=== PATIENT | male | born 1980 | race Caucasian/White ===

== ENCOUNTER 2018-06-25 05:16 | Inpatient (IN) | payer OTHER ==
[2018-06-21 17:55] VITALS: BMI 38.5
--- NOTE | 2018-06-22 08:15 | PREOPHP ---
DATE OF ADMISSION: 06/25/2018 REASON FOR CONSULTATION: Consultation was requested by Dr. Omar Berger for medical evaluation and clearance of a 38-year-old gentleman about to undergo surgery. Thank you, Dr. Berger for allowing us to participate in care of this patient. HISTORY OF PRESENT ILLNESS: The patient is a 38-year-old gentleman, issues with his back currently b eing admitted for correction of the above. In terms of his past medical and surgical history, he has not had any medical hospitalizations, has had several surgeries including an appendectomy and an ope n reduction and internal fixation for a fractured arm. Other than that, he has been quite healthy. MEDICATIONS: Currently he is taking the following medications: 1. Protonix 20 mg b.i.d. 2. Tramadol 50 mg two 4 times a day. 3. Zyrtec 10 mg as needed. 4. Gabapentin 400 mg t.i.d. 5. Ketoprofen 75 mg b.i.d. 6. Cyclobenzaprine 7.5 mg 3 times a day. 7. Adderall-XL 20 mg b.i.d. ALLERGIES: HE IS NOT ALLERGIC TO ANY MEDICATIONS. SOCIAL HISTORY: The patient is , has a daughter. He does not smoke or drink alcohol or coffee. He has no difficulty sleeping at night and currently is on disability. FAMILY HISTORY: Father is alive at 54, doing well. Mother in her 50s of breast cancer. Two br others in good health. Family history of diabetes, cancer and hypertension. REVIEW OF SYSTEMS: HEENT: He denies any significant headaches. CARDIORESPIRATORY: He denies any chest pain or shortness of breath. GASTROINTESTINAL: No melena or hematemesis. GENITOURINARY: No urgency or frequency. MUSCULOSKELETAL: Positive for back pain. NEUROPSYCHIATRIC: Unremarkable. GENERAL HEALTH: As above. PHYSICAL EXAMINATION: VITAL SIGNS: The patient's blood pressure was 124/82, pulse was 80 and regular, respirations were 18 , temperature 98.7, height 6 feet, weight 299.9 pounds. GENERAL: The patient was noted to be a well-developed, well-nourished male, alert and cooperative, i n no apparent acute distress, oriented to time, place, and person. HEAD, EAR, EYES, NOSE AND THROAT: Head was atraumatic. Eyes: Pupils were equal, reacted to light a nd accommodation. Fundi were benign. Tympanic membranes were unremarkable. Nose was negative. Evon th was unremarkable. Fair oral hygiene was present. NECK: Supple without any rigidity. Trachea was midline. Thyroid was within normal limits. Neck ve ins were flat and carotid pulses were equal. BACK: Unremarkable. CHEST: Symmetrical. BREASTS AND AXILLARY: Did not reveal any masses. LUNGS: Clear to percussion and auscultation. HEART: PMI is fifth intercostal space at the midclavicular line. Regular sinus rhythm was noted. N o significant murmurs, rubs, or gallops being elicited. ABDOMEN: Soft, good bowel sounds were noted. No significant organomegaly, masses, or tenderness. GENITALIA: Normal male external genitalia. RECTAL AND PROSTATIC: Per PCP. EXTREMITIES: Did not reveal any clubbing, edema or cyanosis. Scar from prior surgery was noted and peripheral pulses were physiologic. SKIN: Moist and warm without any eruptions. No gross lymphadenopathy was noted. NEUROLOGIC: Grossly intact. IMPRESSION: 1. Lumbar disk disease. 2. Chronic pain syndrome. 3. ADHD. 4. Stable health. LABORATORY DATA: Review of laboratory and other data revealed the following: The patient's chemistr y panel revealed normal electrolytes, random glucose 106, normal BUN and creatinine, calcium and uric acid, proteins, liver function tests basically normal other than minimal elevation of ALT at 45, mag nesium, CBC, UA, PT and PTT were normal as well as was his EKG. His chest x-ray did not reveal any a cute infiltrates, nor with any acute cardiopulmonary changes noted. DISCUSSION: Dr. Berger, I see no contraindication in this patient undergoing current proposed surg [place] under desired form of anesthesia. I feel he is a suitable candidate at this particular point in time. I will be more than happy to follow him with you during his stay at [facility]. Thank you again, Dr. Berger, for allowing us to participate in care of this patient. Sincerely, Dictated By: CEE VALDEZ MD SS/NTS Conf#: [id number] DID#: [id number] CC: OMAR BERGER MD;*EndCC*
[2018-06-25] VITALS (26 sets, daily range): BP systolic 114–167; BP diastolic 60–102; PULSE 74–96; RESP 9–26; Ht 188 cm; Wt 135.9 kg
[~2018-06-25] VITALS: Ht 188 cm; Wt 135.9 kg
[~2018-06-25 05:16] MED LIST: CYCL5TAB PO; GABA400C14 PO; KETO200C PO; TRAM50TA PO
[2018-06-25] MEDS ORDERED: CEFAZOLIN 2 GM/50 ML (PMX) 50 ML IVPB ONE (06:00)
--- NOTE | 2018-06-25 06:39 | PREAC ---
Date/Time of Note Date/Time of Note DATE: 06/25/18 TIME: 06:38 Anesthesia Eval and Record Evaluation Time Pre-Procedure Interview DATE: 06/25/18 TIME: 06:38 Age 38 Sex male NPO: 8 hrs Preoperative diagnosis herniated disk Planned procedure lumbar microdiscectomy Past Medical History Past Medical History: Includes Musculoskeletal: Other (back pain ) GI: GERD, Morbid obesity Surgery & Anesthesia Issues No known issue Meds Anticoagulation: No Beta Fortino within 24 hr: No Reason Beta Fortino not given: Pt. not on B-Fortino Reported Medications Gabapentin* (Gabapentin*) 400 Mg Capsule, 400 MG PO BID, #90 CAP 06/21/18 Cyclobenzaprine Hcl* (Cyclobenzaprine Hcl*) 5 Mg Tablet, 7.5 MG PO BID, #90 TAB 06/21/18 Tramadol Hcl* (Ultram*) 50 Mg Tablet, 100 MG PO Q6H PRN for PAIN, TAB 06/21/18 Ketoprofen (Oruvail) 200 Mg Cap24h.pel, 200 MG PO DAILY, CAP 06/21/18 Current Medications Lactated Ringer's 1,000 ml @ 25 mls/hr Q24H IV* ; Start 06/25/18 at 06:00; Stop 06/26/18 at 21:59 Meds reviewed: Yes Allergies Coded Allergies: No Known Allergy (Unverified , 06/21/18) Allergies Reviewed: Yes Labs/Studies Labs Reviewed: Reviewed by anesthesiologist test: N/A Pre-procedure Exam Airway: Adequate mouth opening, Adequate thyromental dist Mallampati: Mallampati III Teeth: Normal Lung: Normal Heart: Normal ASA Physical Status ASA physical status: 2 Emergency: None Pre-operative Attestations Prior to commencing anesthesia and surgery, the patient was re-evaluated, there was verification of: *The patient's identity *The results of appropriate recent lab work and preoperative vital signs *The above evaluation not changing prior to induction *Anesthetic plan, risk benefits, alternative and complications discussed with patient/family; questions answered; patient/family understands, accepts and wishes to proceed. STEPHANIE KU DO Jun 25, 2018 06:39
[2018-06-25] MEDS ORDERED: PROPOFOL 20 ML ONE (06:48)
[2018-06-25] MEDS ORDERED: SUCCINYLCHOLINE CHLORIDE 100 MG/5 ML SYG IV ONE (06:48)
[2018-06-25] MEDS ORDERED: MIDAZOLAM 1 MG/ML 2 ML INJ ONE (06:48)
[2018-06-25] MEDS ORDERED: ROCURONIUM 50 MG INJ ONE (06:48)
[2018-06-25] MEDS ORDERED: LIDOCAINE 1% (MDV) 20 ML INJ ONE (06:49)
--- NOTE | 2018-06-25 06:54 | HPN ---
Date/Time of Note Date/Time of Note DATE: 06/25/18 TIME: 06:53 Interval H&P Admission Note Pt. seen H&P reviewed: No system changes BRIANA BERGER MD Jun 25, 2018 06:54
[2018-06-25] MEDS ORDERED: CEFAZOLIN 1 GM INJ ONE (07:00)
[2018-06-25] MEDS ORDERED: DESFLURANE 15 MIN ONE (07:00)
[2018-06-25] MEDS ORDERED: CETI10TA19 PO (07:07)
[2018-06-25] MEDS ORDERED: AMPH20TA2 PO (07:07)
[2018-06-25] MEDS ORDERED: PANT20TA3 PO (07:07)
[2018-06-25] MEDS ORDERED: ONDANSETRON 4 MG INJ ONE (07:20)
[2018-06-25] MEDS ORDERED: DEXAMETHASONE 4 MG/ML 5 ML INJ ONE (07:20)
[2018-06-25] MEDS ORDERED: POLYMYXIN/BACITRACIN 1L IRRIG ONE (07:26)
[2018-06-25] MEDS ORDERED: BUPIVACAINE 0.25% (MPF) 30 ML INJ ONE (07:26)
[2018-06-25] MEDS ORDERED: GELATIN SIZE 100 SPONGE ONE (07:26)
[2018-06-25] MEDS ORDERED: THROMBIN 5000 UNIT VIAL ONE (07:26)
[2018-06-25] MEDS ORDERED: GLYCOPYRROLATE 0.4 MG INJ ONE (08:34)
[2018-06-25] MEDS ORDERED: NEOSTIGMINE 3 MG/3 ML SYRINGE ONE (08:34)
[2018-06-25] MEDS: DEXTROSE 5%-0.45% NACL 1,000 ML IV SCH ×3 (08:39→23:02)
[2018-06-25] MEDS ORDERED: SUGAMMADEX SODIUM 200 MG/2 ML VIAL IV ONE (08:42)
--- NOTE | 2018-06-25 08:45 | SIPON ---
Date/Time of Note Date/Time of Note DATE: 06/25/18 TIME: 08:42 Operative Report Preoperative Diagnosis HNP L5-S1 left Postoperative Diagnosis Same Operation/Procedure Performed Left hemilaminotomy L5 Microdiscectomy L5-S1 on the left Medial facetectomy and foraminotomy L5-S1 on the left Cosmetic wound closure (4 cm) Lateral localizing lumbar radiographs (2) Intraoperative nerve monitoring (2 hours) Surgeon see signature line assistant shift supervisor Cassia Chen PAPER SORTER Anesthesia: general Estimated blood loss: 10 - 50 ml's Transfusion Required none Specimen Disc L5-S1 the left Grafts/Implants none Complications none BRIANA BERGER MD Jun 25, 2018 08:45
--- NOTE | 2018-06-25 08:46 | NUR ---
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 spoke to the , will continue to monitor.
--- NOTE | 2018-06-25 08:59 | PAC ---
Date/Time of Note Date/Time of Note DATE: 06/25/18 TIME: 08:58 Post-Anesthesia Notes Post-Anesthesia Note Last documented vital signs Vital Signs Date Temp Pulse Resp B/P (MAP) Pulse Ox O2 O2 Flow FiO2 Time Delivery Rate 06/25/18 98.7 79 20 130/75 98 08:58 06/25/18 75 20 133/89 97 05:31 (104) Activity: WNL Respiratory function: WNL Cardiovascular function: WNL Mental status: Baseline Pain reasonably controlled: Yes Hydration appropriate: Yes Nausea/Vomiting absent: Yes STEPHANIE KU DO Jun 25, 2018 08:59
[2018-06-25] MEDS ORDERED: ZOLPIDEM 5 MG TAB PO PRN (09:00)
[2018-06-25] MEDS ORDERED: BETHANECHOL 25 MG TAB PO PRN (09:00)
[2018-06-25] MEDS ORDERED: LABETALOL HCL 20MG INJ IV PRN (09:00)
[2018-06-25] MEDS ORDERED: NACL 0.9% 3 ML SYG IV SCH (09:00)
[2018-06-25] MEDS ORDERED: PROCHLORPERAZINE 10 MG TAB PO PRN (09:00)
[2018-06-25] MEDS ORDERED: TRIMETHOBENZAMIDE 100 MG/ML VIAL IM PRN (09:00)
[2018-06-25] MEDS ORDERED: ONDANSETRON 4 MG INJ IV PRN ×2 (09:00)
[2018-06-25] MEDS ORDERED: DIAZEPAM 5 MG TAB PO PRN (09:00)
[2018-06-25] MEDS ORDERED: DIPHENHYDRAMINE 50 MG CAP PO PRN (09:00)
[2018-06-25] MEDS ORDERED: NALOXONE (0.4 MG/ML) INJ IV PRN (09:00)
[2018-06-25] MEDS ORDERED: AL HYDROX/MG HYDROX/SIMETH 30 ML CUP PO PRN (09:00)
[2018-06-25] MEDS ORDERED: HYDROCODONE/APAP (5/325) TAB PO PRN ×2 (09:00)
[2018-06-25] MEDS ORDERED: DIAZEPAM 5 MG/ML SYG IM PRN (09:00)
[2018-06-25] MEDS ORDERED: PROCHLORPERAZINE 10 MG INJ IV PRN (09:00)
[2018-06-25] MEDS ORDERED: HYDROmorphONE 1 MG/5 ML IV SYRINGE IV ONE (09:12)
[2018-06-25] MEDS: HYDROmorphONE 1 MG/5 ML IV SYRINGE IV PRN ×6 (09:13→09:50)
[2018-06-25] MEDS: LACTATED RINGER'S 1,000 ML IV* SCH (09:14)
[2018-06-25] MEDS: HYDROmorphONE 0.2 MG/ML PCA IV SCH ×2 (09:25→19:53)
--- NOTE | 2018-06-25 09:35 | OPR ---
DATE OF OPERATION: 06/25/2018 PREOPERATIVE DIAGNOSIS: Herniated disk, L5-S1 on the left. POSTOPERATIVE DIAGNOSIS: Herniated disk, L5-S1 on the left. OPERATIONS PERFORMED: 1. Left hemilaminotomy, L5. 2. Microdiskectomy, L5-S1 on the left. 3. Medial facetectomy and foraminotomy, L5-S1 on the left. 4. Cosmetic wound closure (4 cm). 5. Lateral localized lumbar radiographs (2). 6. Intraoperative nerve monitoring (2 hours). TIRE MOUNTER: MINA Butcher ANESTHESIA: General endotracheal. ANESTHESIOLOGIST: Dr. Lara. ESTIMATED BLOOD LOSS: 15 mL, none replaced. DRAINS: Two medium Hemovac drains employed. COMPLICATIONS: None. PERTINENT HISTORY AND PHYSICAL: This is a 38-year-old male who sustained injury to his back in the [employer] of employment on 02/02/2012. He has had extensive care since that time, remained symptomatic w ith back and left leg pain, which has been unrelieved by conservative management. He has undergone a number of diagnostic studies including an MRI of the lumbar spine, which demonstrated herniation of the L5-S1 disk on the left. Treatment options were discussed with the patient, who elected to procee d with surgery. OPERATIVE FINDINGS AT SURGERY: A small left paracentral herniation of the L5-S1 disk was confirmed. Baseline intraoperative nerve monitoring revealed decrease in the L5 potentials bilaterally of 20%, the left S1 potential was down 50%, the right S1 potential was down 30%. These all returned to ambreen l at the completion of the surgery. OPERATIVE PROCEDURE: With the patient in supine position after satisfactory induction of general end otracheal anesthesia by Dr. Lara, the patient was turned to the prone kneeling position over the [place] frame. All pressure points were carefully padded. Back was prepped and draped in usual layla rile fashion. Athrombic pumps were applied to the legs below the knees to prevent venous stasis duri ng and after procedure. Two spinal needles placed next to what was felt to be the L4 and L5 spinous processes, lateral angiogram was taken which confirmed anatomic localization. A 4 cm incision then c arried out midline over the spinous process of L5 through skin and subcutaneous tissue to deep fascia after skin was infiltrated with 0.25% Marcaine without epinephrine for postoperative analgesia. Sup erficial retractors were placed and hemostasis secured with electrocautery. Throughout the procedure , copious amounts of antibacterial irrigating solution used to periodically irrigate the wound. The fascia was incised in midline with a hot knife and a unilateral subperiosteal dissection carried out at L5-S1 on the left. Deep retractors were placed and deep hemostasis secured with electrocautery. A second intraoperative radiograph was taken with deep retractor at what was felt to be the L5-S1 int erspaces confirmed with second x-ray. A left hemilaminotomy L5 was then carried out using Leksell ro ngeur, Kerrison punches and curettes. Ligamentum flavum was incised with sharp dissection. The oper ating microscope was then moved into place. A medial facetectomy and foraminotomy was accomplished u sing small hand osteotome, mallet, Kerrison punches and curettes. The S1 root was then mobilized med ially and protected with D'Errico nerve retractor using microdissection technique. This revealed a h erniation of the L5-S1 disk on the left. A 15 blade knife used to cut a window in the annulus and po sterior longitudinal ligament and multiple degenerative disk fragments were harvested with pituitary rongeurs and sent to laboratory for pathologic study. Additional fragments were harvested using Epst ein curettes. A thorough search of the floor canal was made with an arthroscopic probe. No addition al fragments were encountered. The epidural hemostasis was secured with bipolar electrocautery on a low setting. Anesthesiologist then asked to perform a Valsalva maneuver at 40 mmHg and no spinal flu id was noted. The wound was then closed in layers over 2 medium Hemovac drains, one below the fascia , one above the fascia using #1 Vicryl [id number] approximating sutures in deep paralumbar muscu lature and deep fascia of back, 2-0 Vicryl subcutaneous approximating on the subcutaneous tissue, and a 4-0 Vicryl subcuticular cosmetic closing suture on the skin. Dermabond and sterile compressive dr essings were applied. The patient tolerated procedure well, was then turned to the supine position o nto his bed and extubated by Dr. Lara. He was transported to the recovery room in satisfactory c ondition. At the conclusion of procedure, sponge, instrument, and needle counts were all correct. NEED FOR WILDLIFE TECHNICIAN: During this spinal surgical procedure, my food service assistant was used to retract and protect the spinal nerves and dural sac. My food service assistant also employed the suction catheters to ev acuate blood from the surgical field to improve visualization of the neural structures. The assistan t was medically necessary to facilitate the completion of the surgery in a safe and expeditious [facility] r. [facility] regulations, as well as hospital bylaws, preclude the use of non-licensed [facility] care personnel such as operating room technicians, to perform these functions. Throughout the procedure, neural monitoring was carried out by [employer] including EMG, SSEP a nd MEP monitoring of the L3, L4, L5 and S1 nerve roots bilaterally along with spinal cord potentials. These were interpreted in real time Dr. Aaron Yates. Dictated By: BRIANA BERGER MD TM/NTS Conf#: [id number] DID#: [id number] CC: BRIANA BERGER MD; Dr. VALDEZ;*[facility]*
--- NOTE | 2018-06-25 10:05 | NUR ---
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 voided 700 ml out via urinal, notified & given update, report given to NNEKA Shea.
--- NOTE | 2018-06-25 10:07 | CONS ---
Consult Date/Type/Reason Admit Date/Time Jun 25, 2018 at 05:16 Initial Consult Date 06/21/2018 Type of Consultation: internal medicine Reason for Consultation pre-op evaluation and clearance Requesting Provider: BRIANA BERGER MD Date/Time of Note DATE: 06/25/18 TIME: 10:02 Subjective alert in recovery room only complaint is back pain at surgical site Objective Vitals Vital Signs Date Temp Pulse Resp B/P (MAP) Pulse Ox O2 O2 Flow FiO2 Time Delivery Rate 06/25/18 98.7 08:50 06/25/18 75 20 133/89 97 05:31 (104) Exam vital signs stable HEENT negative lungs clear heart nregular rhythm Results/Medications Home Meds Reported Medications Amphet Cli-Xgdydu-P-Amphet (Adderall) 20 Mg Tablet, 20 MG PO DAILY, TAB 06/25/18 Cetirizine Hcl* (Cetirizine Hcl*) 10 Mg Tablet, 10 MG PO DAILY, #30 TAB 06/25/18 Pantoprazole* (Pantoprazole*) 20 Mg Tablet.dr, 20 MG PO BID, TAB 06/25/18 Gabapentin* (Gabapentin*) 400 Mg Capsule, 400 MG PO BID, #90 CAP 06/21/18 Cyclobenzaprine Hcl* (Cyclobenzaprine Hcl*) 5 Mg Tablet, 7.5 MG PO BID, #90 TAB 06/21/18 Tramadol Hcl* (Ultram*) 50 Mg Tablet, 100 MG PO Q6H PRN for PAIN, TAB 06/21/18 Ketoprofen (Oruvail) 200 Mg Cap24h.pel, 200 MG PO DAILY, CAP 06/21/18 Medications Current Medications Lactated Ringer's 1,000 ml @ 25 mls/hr Q24H IV* Last administered on 06/25/18at 09:14; Admin Dose 25 MLS/HR; Start 06/25/18 at 06:00; Stop 06/26/18 at 21:59 Dextrose/Sodium Chloride 1,000 ml @ 100 mls/hr Q10H IV ; Start 06/25/18 at 08 :39 Acetaminophen/ Hydrocodone Bitart ([place] (5/325)) 1 tab Q4H PRN PO .PAIN 1-5; Start 06/25/18 at 09:00 Acetaminophen/ Hydrocodone Bitart ([place] (5/325)) 2 tab Q4H PRN PO .PAIN 6-10; Start 06/25/18 at 09:00 Cefazolin Sodium 50 ml @ 100 mls/hr Q6 IVPB ; Start 06/25/18 at 12:00; Stop 06/26/18 at 06:29 Zolpidem Tartrate (Ambien) 5 mg HS PRN PO .INSOMNIA; Start 06/25/18 at 09:00 Prochlorperazine (Compazine) 10 mg Q4H PRN PO NAUSEA/VOMITING; Start 06/25/18 at 09:00 Trimethobenzamide HCl (Tigan) 200 mg Q4H PRN IM NAUSEA/VOMITING; Start 06/25/18 at 09:00 Ondansetron HCl (Zofran Inj) 4 mg Q6H PRN IV NAUSEA/VOMITING; Start 06/25/18 at 09:00 Al Hydrox/Mg Hydrox/Simethicone (Mag-Al Plus) 15 ml Q4H PRN PO .CONSTIPATION; Start 06/25/18 at 09:00 Docusate Sodium (Colace) 100 mg BID PO ; Start 06/26/18 at 09:00 Acetaminophen (Tylenol Tab) 650 mg Q4H PRN PO TEMP GREATER THAN 101F OR BURKETT; S tart 06/25/18 at 09:00 Ascorbic Acid (Vitamin C) 1,000 mg BID PO ; Start 06/26/18 at 09:00 Ferrous Sulfate (Ferrous Sulfate (Ec)) 325 mg TID PO ; Start 06/26/18 at 09:00 Ranitidine HCl (Zantac) 150 mg BID PO ; Start 06/25/18 at 21:00 Diazepam (Valium) 5 mg Q4H PRN PO .MUSCLE SPASM; Start 06/25/18 at 09:00 Diazepam (Valium) 5 mg Q4H PRN IM .MUSCLE SPASM; Start 06/25/18 at 09:00 Phenol (Cepastat Lozenge) 1 lozenge PRN PRN MT .SORE THROAT; Start 06/25/18 at 09:00 Bethanechol Chloride (Urecholine) 25 mg PRN PRN PO .UNABLE TO VOID; Start 06/25/18 at 09:00 Diphenhydramine HCl (Benadryl) 50 mg Q6H PRN PO .PRURITUS; Start 06/25/18 at 09 :00 IV Flush (NS 3 ml) 3 ml PER PROTOCOL IV ; Start 06/25/18 at 09:00 Hydromorphone HCl (Dilaudid CAREGIVERS NON MEDICAL) Q4PCA IV Last administered on 06/25/18at 09:25; Admin Dose 6 MG; Start 06/25/18 at 09:00 Naloxone HCl (Narcan) 0.2 mg Q2M PRN IV RR 8 BREATHS/MIN OR LESS; Start 06/25/18 at 09:00 Hydromorphone HCl (Dilaudid) 0.2 mg PACU PRN IV MILD PAIN 1-3 Last administered on 06/25/18at 09:50; Admin Dose 0.2 MG; Start 06/25/18 at 09:00 Hydromorphone HCl (Dilaudid) 0.4 mg PACU PRN IV MOD PAIN 4-6 Last administered on 06/25/18at 09:46; Admin Dose 0.4 MG; Start 06/25/18 at 09:00 Ondansetron HCl (Zofran Inj) 4 mg PACU ORDER PRN IV NAUSEA/VOMITING Last administered on 06/25/18at 09:13; Admin Dose 4 MG; Start 06/25/18 at 09:00 Prochlorperazine (Compazine Inj) 5 mg PACU ORDER PRN IV NAUSEA/VOMITING; Start 06/25/18 at 09:00 Labetalol HCl (Labetalol) 5 mg PACU ORDER PRN IV HIGH BLOOD PRESSURE; Start 06/25/18 at 09:00 Assessment/Plan Hospital Course (Demo Recall) post-op lumbar spine surgery medically stable. Assessment/Plan (Daily) management per Dr. Berger will reorder5 pre-op meds if he is not cleared by PT later thank you [facility] CEE VALDEZ MD Jun 25, 2018 10:07
[2018-06-25] MEDS: [UNRECOGNIZED DRUG - OTHER] XX SCH ×2 (10:30→18:30)
--- NOTE | 2018-06-25 11:45 | NUR ---
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 S/P Left hemilaminotomy L5, Microdiscectomy L5-S1 on the left, Medial facetectomy and foraminotomy L5-S1 on the left 06/25/2018 O: order received for PT consult. Patient at 9/10 back pain, has been pushing ODD JOB WORKER pump as needed, agreeable to try to get up with PT with clearance from NNEKA Bob to proceed. family members at site and agreeable to rpoceed. PREC: Back prec, lumbar corset at needed. fall prec. PLOF: patient lives with family members in single story house, no entry steps, Patient already received his FWW before surgery. will be able to assist pt as needed. patient was independent with ADL and ambulatory without AD. CLOF: Patient educ on back prec and samuel/doff of corset. Patient CGA/SBA rolling, CGA supine to sit, min assist to lift legs BTB for sit to supine mostly limited by back pain with exertion. CGASBA on transfers and ambulation with FWW, tolerated about 95 feet gait distance again limited by back pain and occasional muscle cramps. no C/O dizziness, followed back prec except when going BTB with minor tendency to twist from the back. A: Recommend HHPT f/u upon DC for home safety eval then can transition to out patient PT rehab for more core/trunk strengthening as needed. P: Cont PT and progress as able.
--- NOTE | 2018-06-25 13:15 | NUR ---
PT note Therapy day number 1 Subjective Current complaint of pain Pain Scale NUMERIC Pain Intensity 8 (0-10) Patient Stated Goal for Pain Relief 0 (0-10) Pain Level Comment headache, low back pain, L toe Pre Treatment Vital Signs Stable Yes Transfer Training Start Time 13:15 Supine to Sit Supervised Transfer Sit to Stand Ability Supervised Bed Mobility Sit to Supine Supervised Bed Transfer Ability Supervised Chair Transfer Ability Supervised Additional Mobility Comments supervised mobility for verbal cues for safety and maintain log roll Transfer Training End Time 13:30 Total Transfer Training Time 15 min (8-127) Gait Training Start Time 13:30 Gait Assist Levels Supervised Assistive Devices Front Wheel Walker Ambulation Distance 50 feet Additional Gait Comments rigid gait, heavy reliance on FWW Gait Training End Time 13:55 Total Gait Training Treatment Time 25 min (8-127) Static Sitting Balance Good Dynamic Sitting Balance Fair Standing Static Balance Fair Dynamic Standing Balance Fair Safety Judgement Good Activity Tolerance Fair Equipment Present A pump Drains IV pump RELIGIOUS EDUCATOR Post Treatment Pain Intensity 8 0-10 Additional Post Treatment Comment See note Total Treament Time 40 min (8-127) Total Minutes 40 Total Units 3 PT Technical Record Comment S: Patient in bed, agreeable to PT intervention. pt cleared for activity per RN O: PT evaluation completed, pt returned back to bed following therapy intervention with call light within reach and bed alarm activated. Spoke to RN regarding pt response to activity and PT plan of care. Vitals stable throughout, lumbosacral corset donned and doffed at EOB. Patient assisted to bathroom prior to PT ambulation and independent with hygiene. A: Patient presents with fair mobility throughout however presents with heavy reliance on FWW. Patient requires cues to maintain spinal precautions throughout and predominantly limited secondary to pain throughout. Patient demonstrates no loss of balance with gait, but ambulates with rigid gait. patient could continue to benefit from skilled inpatient PT to improve safety, compliance with spinal precautions, and functional mobility P: progress endurance as tolerated
[2018-06-25] MEDS: PANTOPRAZOLE SODIUM 20 MG TABEC PO SCH ×2 (13:39→18:00)
[2018-06-25] MEDS: CEFAZOLIN 1 GM/50 ML (PMX) 50 ML IVPB SCH ×3 (13:39→23:49)
[2018-06-25] MEDS: LORATADINE 10 MG TAB PO SCH (13:39)
[2018-06-25] MEDS: ACETAMINOPHEN 325 MG TAB PO PRN ×3 (13:49→23:08)
--- NOTE | 2018-06-25 19:41 | NUR ---
RN NOTES PT IS STABLE, C/O INTERMITTENT HEADACHE, MEDICATED WITH TYLENOL X 2 AND MILD RELIEVE, SCOTT GROSSMAN INFORMED. PT AMBULATED TWICE WITH PT, C/O PAIN AND ENCOURAGED TO USE COMMUNITY MARKETING COORDINATOR FOR PAIN MANAGEMENT. PT CAN BE ASSISTED TO THE BATHROOM WITH NURSING STUFF, PT URINATING VIA URINAL, PT STARTED ON REGULAR DIET AND TOLERATED WELL. PT'S FAMILY AT THE BEDSIDE, CALL LIGHT WITHIN REACH, ENCOURAGED PT TO CALL FOR ASSISTANCE.
[2018-06-25] MEDS: RANITIDINE 150 MG TAB PO SCH (20:54)
[2018-06-25] MEDS: CEPASTAT LOZENGE MT PRN (20:54)
[2018-06-25] MEDS: GABAPENTIN 400 MG CAP PO SCH (20:57)
--- NOTE | 2018-06-25 23:15 | NUR ---
MEDICATED WITH TYLENOL FOR HEADACHE
[2018-06-26] MEDS: [UNRECOGNIZED DRUG - OTHER] XX SCH ×2 (02:30→10:30)
[2018-06-26] MEDS: CEFAZOLIN 1 GM/50 ML (PMX) 50 ML IVPB SCH (05:39)
[2018-06-26] MEDS: PANTOPRAZOLE SODIUM 20 MG TABEC PO SCH (05:39)
--- NOTE | 2018-06-26 05:57 | NUR ---
EOSS. NO ACUTE EVENTS OVERNIGHT. PAIN CONTROLLED BY FACULTY ADMINISTRATOR, HEMOVAC WAS 20 ML DURING THE NIGHT. VOIDING GOOD, USING URINAL. FALLS PRECAUTIONS OBSERVED. CONTINUE PLAN OF CARE.
[2018-06-26] MEDS: LACTATED RINGER'S 1,000 ML IV* SCH (06:00)
--- NOTE | 2018-06-26 06:57 | PN ---
Date/Time of Note Date/Time of Note DATE: 06/26/18 TIME: 06:56 Assessment/Plan Lines/Catheters IV Catheter Type (from Nrsg): Saline Lock [facility] in Place (from Nrsg): No Subjective 24 Hr Interval Summary The patient is postop day #1 following a microdiscectomy at L5-S1 on the left. He is resting comfortably in bed. Neurovascular structures are intact distally. He is afebrile and lab work is unremarkable his Hemovac has minimal drainage (20 cc) and will be discontinued. He will be mobilized as tolerated by physical therapy, and discharged home when cleared by physical therapy. He has been given strict discharge precautions and instructions as well as follow-up arrangements. Exam/Review of Systems Vital Signs Vitals Vital Signs Date Temp Pulse Resp B/P (MAP) Pulse Ox O2 O2 Flow FiO2 Time Delivery Rate 06/26/18 01:14 06/25/18 98.2 79 114/60 97 Nasal 2.0 23:15 (78) Cannula Intake and Output 06/25/18 06/25/18 06/26/18 1515:00 23:00 07:00 IntakeIntake Total 1050 ml 4750 ml 1000 ml OutputOutput Total 30 ml 3950 ml 1600 ml BalanceBalance 1020 ml 800 ml -600 ml Results Result Diagram: 06/26/18 0423 06/26/18 0423 BRIANA BERGER MD Jun 26, 2018 06:57
[2018-06-26 07:51] VITALS: BP 117/67; PULSE 79; RESP 18
--- NOTE | 2018-06-26 07:55 | CONS ---
Consult Date/Type/Reason Admit Date/Time Jun 25, 2018 at 05:16 Initial Consult Date 06/21/2018 Type of Consultation: internal medicine Reason for Consultation post-op f/u Requesting Provider: BRIANA BERGER MD Date/Time of Note DATE: 06/26/18 TIME: 07:52 Subjective doing better pain down the legs almost gone Objective Vitals Vital Signs Date Temp Pulse Resp B/P (MAP) Pulse Ox O2 O2 Flow FiO2 Time Delivery Rate 06/26/18 01:14 06/25/18 98.2 79 114/60 97 Nasal 2.0 23:15 (78) Cannula Intake and Output 06/25/18 06/25/18 06/26/18 1515:00 23:00 07:00 IntakeIntake Total 1050 ml 4750 ml 1000 ml OutputOutput Total 30 ml 3950 ml 1600 ml BalanceBalance 1020 ml 800 ml -600 ml Exam vital signs stable HEENT negative lungs clear heart regular rhythm Results/Medications Result Diagram: 06/26/18 0423 06/26/18 0423 Results 24 hrs Laboratory Tests Test 06/26/18 04:23 06/26/18 07:36 Hemoglobin 13.0 L Hematocrit 39.4 L Sodium Level 144 Potassium Level 3.9 Chloride Level 102 Carbon Dioxide Level 29 Anion Gap 13 Blood Urea Nitrogen 10 Creatinine 0.55 L Est Glomerular Filtrat Rate mL/min > 60 Glucose Level 124 Calcium Level 8.7 Lab Scanned Report REFERENCE LAB Home Meds Reported Medications Amphet Dvi-Aftnnz-Z-Amphet (Adderall) 20 Mg Tablet, 20 MG PO DAILY, TAB 06/25/18 Cetirizine Hcl* (Cetirizine Hcl*) 10 Mg Tablet, 10 MG PO DAILY, #30 TAB 06/25/18 Pantoprazole* (Pantoprazole*) 20 Mg Tablet.dr, 20 MG PO BID, TAB 06/25/18 Gabapentin* (Gabapentin*) 400 Mg Capsule, 400 MG PO BID, #90 CAP 06/21/18 Cyclobenzaprine Hcl* (Cyclobenzaprine Hcl*) 5 Mg Tablet, 7.5 MG PO BID, #90 TAB 06/21/18 Tramadol Hcl* (Ultram*) 50 Mg Tablet, 100 MG PO Q6H PRN for PAIN, TAB 06/21/18 Ketoprofen (Oruvail) 200 Mg Cap24h.pel, 200 MG PO DAILY, CAP 06/21/18 Medications Current Medications Lactated Ringer's 1,000 ml @ 25 mls/hr Q24H IV* Last administered on 06/25/18at 09:14; Admin Dose 25 MLS/HR; Start 06/25/18 at 06:00; Stop 06/26/18 at 21:59 Dextrose/Sodium Chloride 1,000 ml @ 100 mls/hr Q10H IV Last administered on 06/25/18at 23:02; Admin Dose 100 MLS/HR; Start 06/25/18 at 08:39 Acetaminophen/ Hydrocodone Bitart ([place] (5/325)) 1 tab Q4H PRN PO .PAIN 1-5; Start 06/25/18 at 09:00 Acetaminophen/ Hydrocodone Bitart ([place] (5/325)) 2 tab Q4H PRN PO .PAIN 6-10; Start 06/25/18 at 09:00 Zolpidem Tartrate (Ambien) 5 mg HS PRN PO .INSOMNIA; Start 06/25/18 at 09:00 Prochlorperazine (Compazine) 10 mg Q4H PRN PO NAUSEA/VOMITING; Start 06/25/18 at 09:00 Trimethobenzamide HCl (Tigan) 200 mg Q4H PRN IM NAUSEA/VOMITING; Start 06/25/18 at 09:00 Ondansetron HCl (Zofran Inj) 4 mg Q6H PRN IV NAUSEA/VOMITING; Start 06/25/18 at 09:00 Al Hydrox/Mg Hydrox/Simethicone (Mag-Al Plus) 15 ml Q4H PRN PO .CONSTIPATION; Start 06/25/18 at 09:00 Docusate Sodium (Colace) 100 mg BID PO ; Start 06/26/18 at 09:00 Acetaminophen (Tylenol Tab) 650 mg Q4H PRN PO TEMP GREATER THAN 101F OR BURKETT Last administered on 06/25/18at 23:08; Admin Dose 650 MG; Start 06/25/18 at 09:00 Ascorbic Acid (Vitamin C) 1,000 mg BID PO ; Start 06/26/18 at 09:00 Ferrous Sulfate (Ferrous Sulfate (Ec)) 325 mg TID PO ; Start 06/26/18 at 09:00 Ranitidine HCl (Zantac) 150 mg BID PO Last administered on 06/25/18 20:54; Admin Dose 150 MG; Start 06/25/18 at 21:00 Diazepam (Valium) 5 mg Q4H PRN PO .MUSCLE SPASM Last administered on 06/25/18 23:08; Admin Dose 5 MG; Start 06/25/18 at 09:00 Diazepam (Valium) 5 mg Q4H PRN IM .MUSCLE SPASM; Start 06/25/18 at 09:00 Phenol (Cepastat Lozenge) 1 lozenge PRN PRN MT .SORE THROAT Last administered on 06/25/18 20:54; Admin Dose 1 LOZENGE; Start 06/25/18 at 09:00 Diphenhydramine HCl (Benadryl) 50 mg Q6H PRN PO .PRURITUS; Start 06/25/18 at 09:00 IV Flush (NS 3 ml) 3 ml PER PROTOCOL IV ; Start 06/25/18 at 09:00 Hydromorphone HCl (Dilaudid BASIN CLEANER) Q4PCA IV Last administered on 06/25/18 19:53; Admin Dose 6 MG; Start 06/25/18 at 09:00 Naloxone HCl (Narcan) 0.2 mg Q2M PRN IV RR 8 BREATHS/MIN OR LESS; Start 06/25/18 at 09:00 Hydromorphone HCl (Dilaudid) 0.2 mg PACU PRN IV MILD PAIN 1-3 Last administered on 06/25/18 09:50; Admin Dose 0.2 MG; Start 06/25/18 at 09:00 Hydromorphone HCl (Dilaudid) 0.4 mg PACU PRN IV MOD PAIN 4-6 Last administered on 06/25/18 09:46; Admin Dose 0.4 MG; Start 06/25/18 at 09:00 Ondansetron HCl (Zofran Inj) 4 mg PACU ORDER PRN IV NAUSEA/VOMITING Last administered on 06/25/18 09:13; Admin Dose 4 MG; Start 06/25/18 at 09:00 Prochlorperazine (Compazine Inj) 5 mg PACU ORDER PRN IV NAUSEA/VOMITING; Start 06/25/18 at 09:00 Labetalol HCl (Labetalol) 5 mg PACU ORDER PRN IV HIGH BLOOD PRESSURE; Start 06/25/18 at 09:00 Gabapentin (Neurontin) 400 mg BID PO Last administered on 06/25/18at 20:57; Admin Dose 400 MG; Start 06/25/18 at 21:00 Pantoprazole Sodium (Protonix) 20 mg BID@0600,1800 PO Last administered on 06/26/18at 05:39; Admin Dose 20 MG; Start 06/25/18 at 11:00 Miscellaneous Information 20 mg DAILY PO ; Start 06/26/18 at 09:00; Status UNV Loratadine (Claritin) 10 mg DAILY PO Last administered on 06/25/18at 13:39; Admin Dose 10 MG; Start 06/25/18 at 11:00 Miscellaneous Information (*Order Clarification Bulletin) MEDICATION REQUIRES CLARIFICATI... Q8H XX ; Start 06/25/18 at 10:30 Bethanechol Chloride (Urecholine) 25 mg PRN PRN PO UNABLE TO VOID; Start 05/30 02/14 at 08:00 Assessment/Plan Hospital Course (Demo Recall) post-op lumbar spine surgery medically stable. Assessment/Plan (Daily) patient medically stable management per Dr. Berger [facility] MD Jun 26, 2018 07:54
[2018-06-26] MEDS ORDERED: BETHANECHOL 25 MG TAB PO PRN (08:00)
--- NOTE | 2018-06-26 08:15 | NUR ---
PT NOTE Therapy day number 2 Subjective Denies pain Pain Scale NUMERIC Pain Intensity 0 (0-10) Patient Stated Goal for Pain Relief 0 (0-10) Pain Level Comment no c/o pain pre-tx Pre Treatment Vital Signs Stable Yes Exercise Assessment Label Bilat Lower Extremity Exercise Type Active ROM Additional Exercise Comments bed mob tr with sup<>sit log rolling/spinal prec with good return demo x2 Exercise Start Time 08:15 Exercise End Time 08:30 Total Exercise Time 15 min (8-127) Transfer Training Start Time 08:30 Supine to Sit Independent Transfer Sit to Stand Ability Modified Independent Bed Mobility Sit to Supine Independent Bed Transfer Ability Modified Independent Chair Transfer Ability Modified Independent Sitting Tolerance 20 min Additional Mobility Comments increased pain with sit to stand, steady, no LOB, pt ed to avoid valsalva m Transfer Training End Time 08:45 Total Transfer Training Time 15 min (8-127) Gait Training Start Time 08:45 Gait Assist Levels Modified Independent Assistive Devices Front Wheel Walker Ambulation Distance 300 feet Additional Gait Comments 300' c FWW steady, recip, upright post + 120' no AD, decr cad, steady recip Gait Training End Time 08:55 Total Gait Training Treatment Time 10 min (8127) Weight Bearing Assessment Label Bilat Lower Extremity Weight Bearing Status Full Weight Bearing Static Sitting Balance Good Dynamic Sitting Balance Good Standing Static Balance Good Dynamic Standing Balance Fair plus Safety Judgement Good Activity Tolerance Fair Equipment Present A pump IV pump STUDENT AMBASSADOR Additional Equipment Present doubled up LS corset, donned independently Post Treatment Pain Intensity 0 0-10 Additional Post Treatment Comment See Below Total Treament Time 40 min (8-127) Total Minutes 40 Total Units 3 PT Technical Record Comment PT NOTE S: Pt reports "not sure how I feel", no c/o pain or dizziness, premedicated with STUDENT AMBASSADOR, agreeable to PT. Cleared for PT per NNEKA Rincon. O: Pt received semifowler in bed, sleeping but easily roused, alert and oriented, in no apparent distress. Performed bed mob tr, transfer tr and gait tr per tech record above with and without FWW, using log rolling and spinal precautions. Pt ed for safe body mechanics and joint protection during lifting, turning and transfers; pt verbalized undertanding. Pt left sitting at EOB post-tx with NNEKA Rincon present in room . RN updated re pt status. A: Pt jamari tx well, continues to c/o pain with standing turning with and without FWW and during sit<>stand, however was stable with gait and transfers with and with out AD, with no LOB despite head turning/nodding. P: Will discuss possible DC from PT with supervising therapist due to PT goals met. Addendum: 06/26/18 at 0928 by ADELE BAILEY PT Discussed treatment intervention and pt goals with COMPUTER SYSTEMS SUPPORT SPECIALIST, patient demonstrates mod I mobility throughout, no skilled therapy required at this time. Co-signed by Adele Bailey PT, DPT
[2018-06-26] MEDS: RANITIDINE 150 MG TAB PO SCH (08:58)
[2018-06-26] MEDS: GABAPENTIN 400 MG CAP PO SCH (08:58)
[2018-06-26] MEDS: LORATADINE 10 MG TAB PO SCH (08:59)
[2018-06-26] MEDS ORDERED: NON-FORMULARY/PATIENT OWN MED (Amphet Asp-Amphet-D-Amphet (Adderall) 20 MG) PO SCH (09:00)
[2018-06-26] MEDS ORDERED: ASCORBIC ACID 500 MG TAB PO SCH (09:00)
[2018-06-26] MEDS ORDERED: FERROUS SULFATE (EC) 325 MG TAB PO SCH (09:00)
[2018-06-26] MEDS ORDERED: DOCUSATE SODIUM 100 MG CAP PO SCH (09:00)
[2018-06-26] MEDS: CEPASTAT LOZENGE MT PRN (09:35)
--- NOTE | 2018-06-26 11:04 | NUR ---
[place] NOTES: MET WITH THE PT AT THE BEDSIDE. PT IS A 38 YRS OLD MALE WITH ADMITTING DX OF HERNIATED DISC. PRIOR TO THE ADMISSION, PT LIVED WITH . PT HAD NO PREVIOUS DME BEFORE. PT WAS INFORMED ABOUT ELEVATED TOILET SEAT AND PT DECLINED. PT CAN BE DC HOME TODAY IF CLEARS BY SURGEONJing NEAL CM [id number] Addendum: 06/26/18 at 1106 by GIDEON HENSON CM Amended: Links added.
--- NOTE | 2018-06-26 13:03 | NUR ---
DISCHARGE PT D/C'D HOME PER MD ORDERS. VSS, REPORTS MILD PAIN BUT REFUSING TO TAKE PAIN MEDICATION AT THIS TIME. D/C INSTRUCTIONS PROVIDED TO PT AND HIS FAMILY. ALL QUESTIONS ANSWERED, VERBALIZED UNDERSTANDING. BOTH IV HL D/C'D. D/C HOME AT THIS TIME, OFF UNIT VIA WHEELCHAIR. WITH DC INSTRUCTIONS AND BELONGINGS ON HAND.
--- NOTE | 2018-07-02 10:54 | DS ---
Date/Time of Note Date/Time of Note DATE: 07/02/18 TIME: 10:53 Discharge Summary Admission/Discharge Info Admit Date/Time Jun 25, 2018 at 05:16 Discharge Date/Time Jun 26, 2018 at 13:14 Discharge Diagnosis HNP L5-S1 left Patient Condition: Good Hospital Course Patient did well postoperatively. His diet and activity were advanced as tolerated. He was discharged home in good condition on postop day #1 with strict discharge and follow-up instructions. Home Meds Reported Medications Amphet Ndb-Vzkxga-R-Amphet (Adderall) 20 Mg Tablet, 20 MG PO DAILY, TAB 06/25/18 Cetirizine Hcl* (Cetirizine Hcl*) 10 Mg Tablet, 10 MG PO DAILY, #30 TAB 06/25/18 Pantoprazole* (Pantoprazole*) 20 Mg Tablet.dr, 20 MG PO BID, TAB 06/25/18 Gabapentin* (Gabapentin*) 400 Mg Capsule, 400 MG PO BID, #90 CAP 06/21/18 Cyclobenzaprine Hcl* (Cyclobenzaprine Hcl*) 5 Mg Tablet, 7.5 MG PO BID, #90 TAB 06/21/18 Discontinued Reported Medications Tramadol Hcl* (Ultram*) 50 Mg Tablet, 100 MG PO Q6H PRN for PAIN, TAB 06/21/18 Ketoprofen (Oruvail) 200 Mg Cap24h.pel, 200 MG PO DAILY, CAP 06/21/18 Follow-up Plan Follow-up with Dr. Mart in 1-2 weeks. Primary Care Provider Not On Staff Doctor NGOC HARRIS Jul 02, 2018 10:54
== END 2018-06-26 13:14 | disposition home or self-care (01) | DRG 520 ==
LOC: REC 05:16 → MS1 10:04
PROVIDERS: ADMIT Orthopaedic Surgery; ATTEND Orthopaedic Surgery
PROC: 0SB40ZZ Excision of Lumbosacral Disc, Open Approach (ICD-10-PCS; principal; 2018-06-25 07:00)
DX: M51.27 Other intervertebral disc displacement, lumbosacral region (principal)
CPT/HCPCS: 72020; 80048; 85014; 85018; 86850; 86900; 86901; 86920; 88304; 97110; 97116; 97161; 97530; J0690; J1100; J1170; J2250; J2405; J2710; J3010; J7042; J7120